=== PATIENT | female | born 1970 | race Caucasian/White ===

== ENCOUNTER 2017-07-26 18:50 | Emergency (ER) | payer SELFPAY ==
[~2017-07-26] VITALS: Ht 170.2 cm; Wt 66.0 kg
--- NOTE | 2017-07-26 19:37 | PD ---
HPI Chief Complaint: Complaint Time Seen by Provider: 19:26 Travel History International Travel<30 days: No Contact w/Intl Traveler<30days: No Traveled to known affect area: No History of Present Illness HPI Patient is a 46-year-old female presented to the emergency department for evaluation of 2 weeks of vaginal bleeding. Patient reports until this month her periods were regular, lasting 3 days in duration. She states that it is painful when she inserts a tampon, she also reports painful intercourse last night. These findings are new for her. She denies any previous pain with intercourse or with insertion of tampons. She denies any lightheadedness, shortness of breath, palpitations. Symptom onset was 2 weeks ago, symptoms are moderate in nature. There are no alleviating factors. PFSH Past Medical History Medical History: Denies Significant Hx Respiratory: Yes (asthma) Tetanus Vaccination: < 5 Years Influenza Vaccination: Yes ?: Not LMP: 07/26/17 : 5 Para: 2 Miscarriage: 3 Ectopic : Yes Dilation and Curettage (D&C): Yes Past Surgical History Abdominal Surgery: Yes ( inguinal and femeral hernia repair) Section: Yes Cholecystectomy: Yes Other Surgery: Yes (barthorn cyst removal x2, ) Family History Narrative Family History Family history of cervical and uterine cancer Social History Alcohol Use: Yes (occaisonally) Tobacco Use: Yes (1/2PPD) Substance Use: No Allergies-Medications (Allergen,Severity, Reaction): Coded Allergies: No Known Drug Allergies (Verified Allergy, Unknown, 07/26/17) Reported Meds & Prescriptions Reported Meds & Active Scripts Active No Active Prescriptions or Reported Medications Review of Systems Except as stated in HPI: all other systems reviewed are Neg Genitourinary: Positive: Vaginal Bleeding Physical Exam Narrative GENERAL: Well-developed, well-nourished, alert female. Presenting in no acute distress. SKIN: Warm and dry. HEAD: Atraumatic. Normocephalic. EYES: Pupils equal and round. No scleral icterus. No injection or drainage. ENT: No nasal bleeding or discharge. Mucous membranes pink and moist. NECK: Trachea midline. No JVD. CARDIOVASCULAR: Regular rate and rhythm. RESPIRATORY: No accessory muscle use. Clear to auscultation. Breath sounds equal bilaterally. GASTROINTESTINAL: Abdomen soft, non-tender, nondistended. Hepatic and splenic margins not palpable. GENITOURINARY: Normal external genitalia without lesions or erythema. Vaginal vault without drainage, moderate amount of blood with clots. Cervical os was closed without drainage. No cervical motion tenderness. Uterus nontender and nonenlarged. Bilateral adnexa nontender without masses. MUSCULOSKELETAL: Extremities without clubbing, cyanosis, or edema. No obvious deformities. NEUROLOGICAL: Awake and alert. No obvious cranial nerve deficits. Motor grossly within normal limits. Five out of 5 muscle strength in the arms and legs. Normal speech. PSYCHIATRIC: Appropriate mood and affect; insight and judgment normal. Data Data Last Documented VS Vital Signs Date Time Temp Pulse Resp B/P (MAP) Pulse Ox O2 Delivery O2 Flow Rate FiO2 07/26/17 20:16 98.6 71 20 129/68 (88) 98 Room Air Orders Orders Complete Blood Count With Diff (07/26/17 19:34) Basic Metabolic Panel (Bmp) (07/26/17 19:34) Sodium Chloride 0.9% Flush (Ns Flush) (07/26/17 19:45) Iv Access Insert/Monitor (07/26/17 19:34) Us Pelvis Preg W Transvaginal (07/26/17 ) Labs Laboratory Tests Test 07/26/17 19:50 White Blood Count 10.2 TH/MM3 Red Blood Count 4.57 MIL/MM3 Hemoglobin 13.5 GM/DL Hematocrit 39.8 % Mean Corpuscular Volume 87.0 FL Mean Corpuscular Hemoglobin 29.5 PG Mean Corpuscular Hemoglobin Concent 33.9 % Red Cell Distribution Width 13.8 % Platelet Count 284 TH/MM3 Mean Platelet Volume 9.0 FL Neutrophils (%) (Auto) 66.8 % Lymphocytes (%) (Auto) 26.0 % Monocytes (%) (Auto) 5.3 % Eosinophils (%) (Auto) 0.9 % Basophils (%) (Auto) 1.0 % Neutrophils # (Auto) 6.8 TH/MM3 Lymphocytes # (Auto) 2.7 TH/MM3 Monocytes # (Auto) 0.5 TH/MM3 Eosinophils # (Auto) 0.1 TH/MM3 Basophils # (Auto) 0.1 TH/MM3 CBC Comment DIFF FINAL Differential Comment Blood Urea Nitrogen 12 MG/DL Creatinine 0.95 MG/DL Random Glucose 122 MG/DL Calcium Level 8.7 MG/DL Sodium Level 141 MEQ/L Potassium Level 3.4 MEQ/L Chloride Level 106 MEQ/L Carbon Dioxide Level 28.0 MEQ/L Anion Gap 7 MEQ/L Estimat Glomerular Filtration Rate 63 ML/MIN [facility] Medical Decision Making Medical Screen Exam Complete: Yes Emergency Medical Condition: Yes Interpretation(s) Last Impressions Pelvis Ultrasound 07/26/17 0000 Signed Impressions: Service Date/Time: Wednesday, July 26, 2017 20:44 - CONCLUSION: 1. Thickened endometrium. Correlation with stage of menstrual cycle is suggested. 2. Probable right-sided uterine fibroid measuring 2.0 cm in size. 3. Multiple cystic structures throughout the cervix which may represent nabothian cysts. 4. Normal right ovary. 5. Nonvisualization of the left ovary. Toni Gandara MD Laboratory Tests Test 07/26/17 19:50 White Blood Count 10.2 TH/MM3 Red Blood Count 4.57 MIL/MM3 Hemoglobin 13.5 GM/DL Hematocrit 39.8 % Mean Corpuscular Volume 87.0 FL Mean Corpuscular Hemoglobin 29.5 PG Mean Corpuscular Hemoglobin Concent 33.9 % Red Cell Distribution Width 13.8 % Platelet Count 284 TH/MM3 Mean Platelet Volume 9.0 FL Neutrophils (%) (Auto) 66.8 % Lymphocytes (%) (Auto) 26.0 % Monocytes (%) (Auto) 5.3 % Eosinophils (%) (Auto) 0.9 % Basophils (%) (Auto) 1.0 % Neutrophils # (Auto) 6.8 TH/MM3 Lymphocytes # (Auto) 2.7 TH/MM3 Monocytes # (Auto) 0.5 TH/MM3 Eosinophils # (Auto) 0.1 TH/MM3 Basophils # (Auto) 0.1 TH/MM3 CBC Comment DIFF FINAL Differential Comment Blood Urea Nitrogen 12 MG/DL Creatinine 0.95 MG/DL Random Glucose 122 MG/DL Calcium Level 8.7 MG/DL Sodium Level 141 MEQ/L Potassium Level 3.4 MEQ/L Chloride Level 106 MEQ/L Carbon Dioxide Level 28.0 MEQ/L Anion Gap 7 MEQ/L Estimat Glomerular Filtration Rate 63 ML/MIN Vital Signs Date Time Temp Pulse Resp B/P (MAP) Pulse Ox O2 Delivery O2 Flow Rate FiO2 07/26/17 20:16 98.6 71 20 129/68 (88) 98 Room Air Differential Diagnosis Dysfunctional uterine bleeding versus anemia versus fibroids versus mass perimenopausal state versus other Narrative Course Patient is well-appearing 46-year-old female presenting for evaluation of prolonged menstrual cycle. Patient's vital signs are stable, labs and imaging ordered and pending. Labs reviewed, no acute finding identified. Ultrasound the pelvis thickened endometrium. Correlation with stage of menstrual cycle is suggested. Probable right-sided uterine fibroid measuring 2.0 cm in size. Multiple cystic structures throughout the cervix which may represent nabothian cysts. Normal right ovary. Nonvisualization of the left ovary. A mandatory referral will be made for patient to follow-up with a property utilization manager as she has no medical benefits at this time. Patient was encouraged return to emergency department any new worsening symptoms. Diagnosis Primary Impression: Dysfunctional uterine bleeding Additional Impressions: Fibroid uterus Qualified Codes: D25.9 - Leiomyoma of uterus, unspecified Cervix abnormality Referrals: [employer] 1 week Patient Instructions: Dysfunctional Uterine Bleeding (ED), General Instructions Additional Instructions: Follow-up with property utilization manager, mandatory referral has been made for you. You will be notified by the hospital. Follow[facility]up at the [facility] Return to emergency department for any new or worsening symptoms Med/Other Pt SpecificInfo: No Change to Meds Scripts No Active Prescriptions or Reported Meds Disposition: 01 DISCHARGE HOME Condition: Stable Rivka Pang July 26, 2017 19:37
[2017-07-26] MEDS ORDERED: SODIUM CHLORIDE 0.9% FLUSH 10 ML FLUSH IVF PRN (19:45)
[2017-07-26 20:16] VITALS: BP 129/68; PULSE 71; RESP 20; TEMP 98.6; O2SAT 98
[2017-07-26 20:29] LABS: AUTOMATED NEUTROPHIL # 6.8 TH/MM3 (1.8-7.7); BASOPHIL # 0.1 TH/MM3 (0-0.2); EOSINOPHIL # 0.1 TH/MM3 (0-0.4); EOSINOPHIL % 0.9 % (0.0-4.0); HEMATOCRIT 39.8 % (35.0-46.0); HEMOGLOBIN 13.5 GM/DL (11.6-15.3); LYMPHOCYTE # 2.7 TH/MM3 (1.0-4.8); MEAN CORPUSCULAR HEMOGLOBIN 29.5 PG (27.0-34.0); MEAN CORPUSCULAR HGB CONC 33.9 % (32.0-36.0); MONO % 5.3 % (0.0-8.0); MONOCYTE # 0.5 TH/MM3 (0-0.9); NEUT % 66.8 % (16.0-70.0); PLATELET COUNT 284 TH/MM3 (150-450); RED BLOOD COUNT 4.57 MIL/MM3 (4.00-5.30); RED CELL DISTRIBUTION WIDTH 13.8 % (11.6-17.2); WHITE BLOOD COUNT 10.2 TH/MM3 (4.0-11.0)
[2017-07-26 20:51] LABS: CALCIUM 8.7 MG/DL (8.5-10.1); CREATININE 0.95 MG/DL (0.50-1.00)
--- NOTE | 2017-07-26 21:29 | RADRPT ---
EXAM DATE/TIME: 07/26/2017 20:44 CORRECTION Corrected on: July 26, 2017; [place] COMPARISON: No previous studies available for comparison. INDICATIONS : Vaginal bleeding for 15 days. MEDICAL HISTORY : Ectopic . SURGICAL HISTORY : Right fallopian tube removed. . ENCOUNTER: Initial ACUITY: 2 weeks PAIN SCORE: 0/10 LOCATION: Bilateral pelvis MEASUREMENTS: UTERUS: 11.4 x 7.0 x 5.5 cm ENDOMETRIAL STRIPE: 19 mm RIGHT OVARY: 2.7 x 1.5 x 1.2 cm LEFT OVARY: Not visualized. FINDINGS: The endometrium is thickened. Correlation with stage of menstrual cycle is suggested. There is a tre d nodule within the right side of the uterus measuring 1.8 x 2.0 x 1.5 cm consistent with probable fi broid. Cystic structures are noted throughout the cervix which are nonspecific. The left ovary is not visualized. The right ovary is normal. No free fluid is noted. CONCLUSION: 1. Thickened endometrium. Correlation with stage of menstrual cycle is suggested. 2. Probable right-sided uterine fibroid measuring 2.0 cm in size. 3. Multiple cystic structures throughout the cervix which are nonspecific. 4. Normal right ovary. 5. Nonvisualization of the left ovary. Toni Gandara MD on July 26, 2017 at 21:23 Board Certified Radiologist. This report was verified electronically. Toni Gandara MD on July 26, 2017 at 21:29 Board Certified Radiologist. This report was verified electronically.
[2017-07-26 22:43] VITALS: BP 116/67
== END 2017-07-26 22:24 | disposition home or self-care (01) ==
LOC: NEPD 18:50
DX: N93.8 Other specified abnormal uterine and vaginal bleeding (principal); D25.9 Leiomyoma of uterus, unspecified; J45.909 Unspecified asthma, uncomplicated; F17.200 Nicotine dependence, unspecified, uncomplicated
CPT/HCPCS: 76801; 76817; 80048; 85025; 99284